=== PATIENT | male | born 1950 | race Caucasian/White ===

== ENCOUNTER 2016-05-09 10:50 | Day surgery (SDC) | payer MEDICARE, BC ==
--- NOTE | ~2016-05-09 | EGD ---
EGD REPORT [facility] [address] [phone] NAME: ALBARO HUYNH : [birth year] STATUS : REG [facility] PAT#: [id number] AGE: 66 ADM/REG DATE : 05/09/16 MR#: [id number] REPORT SERV DATE: 05/09/16 DICTATED BY: AMY LANCE DATE: 05/09/16 REPORT STATUS : Draft TRANSCRIBED BY: [facility] DATE: 05/09/16 Endoscopy Center Patient Name: Albaro Huynh Date of : 1950 Attending MD: AMY LANCE, Procedure Date No Time: 05/09/2016 Procedure: Upper EUS Indications: Staging of gastric adenocarcinoma Referring MD: BENITEZ Lan Medicines: Monitored Anesthesia Care Complications: No immediate complications. Estimated blood loss: None. Procedure: Pre-Anesthesia Assessment: - ASA Grade Assessment: II - A patient with mild systemic disease. After obtaining informed consent, the endoscope was passed under direct vision. Throughout the procedure, the patient's blood pressure, pulse, and oxygen saturations were monitored continuously. The GIF [id number] was introduced through the mouth, and advanced to the second part of duodenum. The Endoscope was introduced through the mouth, and advanced to the lower third of esophagus. Findings: Endoscopic Finding : A large, ulcerating mass with bleeding was found at the lower esophageal sphincter, at the gastroesophageal junction and in the cardia. The mass was partially obstructing and circumferential. The mass was involving the proximally 3-4 cm of the stomach and extending about 2 cm into the esophagus. The exam of the stomach was otherwise normal. The examined duodenum was endoscopically normal. Endosonographic Finding : A hypoechoic mass was found in the lower third of the esophagus. The lesion was circumferential. There was sonographic evidence suggesting invasion into the adventitia (Layer 5). The mass was not traversible with the EUS scope. No lymphadenopathy seen. Impression: - Partially obstructing, malignant esophageal tumor was found at the gastroesophageal junction and in the cardia. - Normal examined duodenum. - A mass was found in the lower third of the esophagus. T3NO by EUS. However lesion was not traversible with EUS scope and there is potential for understaging. EGD REPORT [address] [address] NAME: ALBARO HUYNH : [birth year] STATUS : REG [facility] PAT#: [id number] AGE: 66 ADM/REG DATE : 05/09/16 MR#: [id number] REPORT SERV DATE: 05/09/16 DICTATED BY: AMY LANCE DATE: 05/09/16 REPORT STATUS : Draft TRANSCRIBED BY: [email or web address] DATE: 05/09/16 Recommendation: - Return to previous diet. - Continue present medications. - Return to referring physician. Procedure Code(s): --- Professional --- 39172, Esophagogastroduodenoscopy, flexible, transoral; with endoscopic ultrasound examination limited to the esophagus, stomach or duodenum, and adjacent structures Diagnosis Code(s): --- Professional --- C16.0, Malignant neoplasm of cardia K22.8, Other specified diseases of esophagus CPT copyright 2013 [employer]. All rights reserved. The codes documented in this report are preliminary and upon desktop support technician review may be revised to meet current compliance requirements. AMY LANCE, 05/09/2016 12:59 PM Number of Addenda: 0 Note Initiated On: 05/09/2016 12:34 PM Scope Withdrawal Time 0 hours 0 minutes 0 seconds [address] [id number]
[~2016-05-09 10:50] MED LIST: ASAB PO; CALTRA600D PO; CO Q-10100 MG PO; LIPITOR40 PO; LOP50 PO; LOTENSIN HCT1 TA3 PO; MOBIC15 MG PO; NORV10 PO; Z100 PO
[2016-05-09 11:36] LABS: BUN (BLOOD UREA NITROGEN) 18 MG/DL (6-23); CALCIUM, SERUM 9.1 MG/DL (8.5-10.4); CHLORIDE, SERUM 108 MMOL/L (96-112); CO2 (CARBON DIOXIDE) 27 MMOL/L (24-34); GFR AFRICAN AMERICAN 106 ML/MIN (>=60); GFR NON AFRICAN AMERICAN 92 ML/MIN (>=60); GLUCOSE, SERUM 117 MG/DL (60-99); POTASSIUM, SERUM 3.8 MMOL/L (3.5-5.3); SODIUM, SERUM 143 MMOL/L (135-148)
[2016-08-23] MEDS ORDERED: COMP10B PO (18:28)
[2016-08-23] MEDS ORDERED: ZOFRANODT8 (18:29)
[2016-08-23] MEDS ORDERED: ULTRAM50 PO (18:30)
[2016-08-23] MEDS ORDERED: KLOR-CON M2020 MEQ PO (18:30)
[2016-08-23] MEDS ORDERED: FLUOROURACIL (18:33)
== END 2016-05-09 23:59 | disposition home or self-care (01) ==
LOC: DMU 10:50
PROVIDERS: Anesthesiology; Internal Medicine Gastroenterology
PROC: 0DJ08ZZ Inspection of Upper Intestinal Tract, Via Natural or Artificial Opening Endoscopic (ICD-10-PCS; principal; 2016-05-09 12:30)
DX: C16.0 Malignant neoplasm of cardia (principal); I10 Essential (primary) hypertension; I25.10 Atherosclerotic heart disease of native coronary artery without angina pectoris; M19.90 Unspecified osteoarthritis, unspecified site; M10.9 Gout, unspecified; E11.9 Type 2 diabetes mellitus without complications; E78.00 Pure hypercholesterolemia, unspecified; Z95.5 Presence of coronary angioplasty implant and graft; Z79.1 Long term (current) use of non-steroidal anti-inflammatories (NSAID); Z79.82 Long term (current) use of aspirin; Z79.899 Other long term (current) drug therapy; Z98.890 Other specified postprocedural states
CPT/HCPCS: 80048

== ENCOUNTER 2016-06-04 07:50 | Day surgery (SDC) | payer MEDICARE, BC ==
--- NOTE | ~2016-06-04 | CN ---
Consultation Report [facility] [address] [place]. [address] NAME: ALBARO HUYNH : [birth year] STATUS : REG [facility] PAT#: [id number] AGE: 66 ADM/REG DATE : 06/04/16 MR#: [id number] REPORT SERV DATE: 06/04/16 DICTATED BY: NGUYỄN AC DATE: 06/04/16 REPORT STATUS : Draft TRANSCRIBED BY: MODMalik DATE: 06/04/16 CONSULT DATE OF CONSULTATION: Dear Dr. Virgilio Silver: Thank you for requesting my opinion regarding evaluation and management of FDG-avid mediastinal lymphadenopathy. Mr. 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 The patient states that he has no significant shortness of breath with routine activity; however, he has typical exertional dyspnea well localized to the chest, nonradiating with no significant alleviating or exacerbating factors. He has a significant past medical history of diabetes, changed his diet, and has lost approximately 55 pounds due to dietary reasons. He denies any bowel changes or visible blood loss. He does have a history of cardiac stent and takes daily aspirin which has been held in anticipation of the procedure. ALLERGIES: NO KNOWN DRUG ALLERGIES. HOME MEDICATIONS: Reviewed and located in the paper chart. PAST MEDICAL HISTORY: 1. Arthritis. 2. Diabetes. 3. Hypertension. 4. Gastroesophageal carcinoma, colon, distal esophagus/gastric cardia tumor, UT3 N0 and PET FDG-avidity in the gastric fundus, lesser curvature, some small foci and increased FDG-avidity in the periportal lymph nodes anterior aspect of the caudate liver and recent scan that demonstrates mediastinal adenopathy as well. PAST SURGICAL HISTORY: Colonoscopy in 2009 and cardiac stent in 1994. SOCIAL HISTORY: The patient is . He is a lifelong nonsmoker. He does drink alcohol on a social basis. He lives with his spouse of 48 years. FAMILY HISTORY: Brain cancer. Hypertension. REVIEW OF SYSTEMS: A detailed 14-point review of systems was completed. Pertinent positives and negatives are listed above. Consultation Report [facility] [address] [facility]. [address] NAME: ALBARO HUYNH : [birth year] STATUS : REG [facility] PAT#: [id number] AGE: 66 ADM/REG DATE : 06/04/16 MR#: [id number] REPORT SERV DATE: 06/04/16 DICTATED BY: NGUYỄN AC DATE: 06/04/16 REPORT STATUS : Draft TRANSCRIBED BY: BLACK DATE: 06/04/16 PHYSICAL EXAMINATION: VITAL SIGNS: Height 5 foot 11. Blood pressure 144/72, pulse of 66, respiratory rate of 20, O2 saturation 94%, and afebrile 97.8. GENERAL: No acute distress. Able to communicate in full paragraphs at a time. HEENT: Normocephalic, atraumatic. Pupils are equal, round, and reactive to light and accommodation. Posterior oropharynx is clear. NECK: No JVD. No LAD. Trachea midline. CARDIOVASCULAR: Regular rate and rhythm. S1, S2 present. LUNGS: Clear to auscultation bilaterally. ABDOMEN: Nontender, nondistended. Soft. Positive bowel sounds. EXTREMITIES: No clubbing, cyanosis, or edema. SKIN: No new rashes, lesions, or ulcers. PSYCHIATRIC: Alert and oriented x3. Appropriate mood and affect. Appropriate insight and judgment. NEUROLOGIC: 5/5 strength in upper and lower extremities. IMAGING: PET-CT scan of the chest was performed on 05/20/2016, was personally reviewed by me. Multifocal increased FDG-avidity in the gastric fundus, lesser curvature of the stomach, consistent with a history of adenocarcinoma. Small foci of increased FDG-activity in the periportal lymph nodes as well in the anterior aspect of the caudate lobe of the liver concerning for metastatic disease and multiple FDG-avid mediastinal and bilateral hilar nodes, concerning for metastatic disease. Minimal right-sided pleural effusion as well as a moderate ascites. ASSESSMENT AND PLAN: Mr. Albaro Huynh is an extremely pleasant 66-year-old gentleman with a significant past medical history of gastric cardia adenocarcinoma, who presents with an abnormal PET-CT scan on 05/20/2016, that demonstrates multiple sites of FDG-avidity including the mediastinal lymph nodes. The patient is being assessed for possible metastatic disease and other potential etiologies of the mediastinal lymphadenopathy though unlikely, could also represent reactive or inflammatory nodes. At this point, Mr. Huynh qualifies for multiple routes of diagnosis including CT-guided needle biopsy of the other lesions and EBUS bronchoscopy. After careful discussion of the risks, benefits, and alternatives to each of these procedures, we agreed to proceed forward with EBUS bronchoscopy. The patient is aware that the procedure is associated with potential life-threatening risks, including lung collapse, respiratory failure, and even . RECOMMENDATIONS: A summary of my recommendations are as follows: 1. Proceed with EBUS bronchoscopy. 2. Follow up with Dr. Virgilio Silver. Thank you for allowing me to participate in Mr. Albaro Huynh's care. Consultation Report [address]. [address] NAME: ALBARO HUYNH : [birth year] STATUS : REG [facility] PAT#: [id number] AGE: 66 ADM/REG DATE : 06/04/16 MR#: [id number] REPORT SERV DATE: 06/04/16 DICTATED BY: NGUYỄN AC DATE: 06/04/16 REPORT STATUS : Draft TRANSCRIBED BY: BLACK DATE: 06/04/16 KB/BLACK Nguyễn Ac M.D. / [id number] CC: Katy Castillo
--- NOTE | ~2016-06-04 | EGD ---
EGD REPORT [facility] [address] [phone] NAME: ALBARO HUYNH : [birth year] STATUS : REG [facility] PAT#: [id number] AGE: 66 ADM/REG DATE : 06/04/16 MR#: [id number] REPORT SERV DATE: 06/04/16 DICTATED BY: TEDDY AC DATE: 06/04/16 REPORT STATUS : Draft [facility]ANSCRIBED BY: [facility] DATE: 06/04/16 Pulmonology Patient Name: Albaro Huynh Procedure Date: 06/04/2016 8:52 AM Date of : 1950 Attending MD: SOSA AC MD Procedure Date No Time: 06/04/2016 Procedure: EBUS Indications: Mediastinal adenopathy, history of gastric adenocarcinoma Providers: SOSA AC MD Referring MD: DONAVAN Lan Medicines: Lidocaine 2% 20 mL Complications: No immediate complications Procedure: Pre-Anesthesia Assessment: - A History and Physical has been performed. Patient meds and allergies have been reviewed. The risks and benefits of the procedure and the sedation options and risks were discussed with the patient. All questions were answered and informed consent was obtained. Patient identification and proposed procedure were verified prior to the procedure by the physician and the nurse in the pre-procedure area in the procedure room. Mental Status Examination: alert and oriented. Airway Examination: normal oropharyngeal airway. Respiratory Examination: clear to auscultation. CV Examination: normal and RRR, no murmurs, no S3 or S4. ASA Grade Assessment: III - A patient with severe systemic disease. After reviewing the risks and benefits, the patient was deemed in satisfactory condition to undergo the procedure. The anesthesia plan was to use general anesthesia. Immediately prior to administration of medications, the patient was re-assessed for adequacy to receive sedatives. The heart rate, respiratory rate, oxygen saturations, blood pressure, adequacy of pulmonary ventilation, and response to care were monitored throughout the procedure. The physical status of the patient was re-assessed after the procedure. Findings: The laryngeal mask airway is in normal position. The vocal cords move normally with breathing. The subglottic space is normal. The trachea is of normal caliber. The chalino is splayed. The tracheobronchial tree was examined to at least the first subsegmental level. Bronchial mucosa and anatomy are normal; there are no endobronchial lesions, and no secretions. EGD REPORT [facility] [address] [place], [place] [address]. [address] NAME: ALBARO HUYNH : [birth year] STATUS : REG [facility] PAT#: [id number] AGE: 66 ADM/REG DATE : 06/04/16 MR#: [id number] REPORT SERV DATE: 06/04/16 DICTATED BY: TEDDY AC DATE: 06/04/16 REPORT STATUS : Draft TRANSCRIBED BY: [employer] DATE: 06/04/16 EBUS TBNA of lymph node level 11L x 4 passes for cytology EBUS TBNA of lymph node level 7 x 4 passes for cytology EBUS TBNA of lymph node level 4R x 8 passes for cytology Impression: Rapid On-Site Evaluation (KANIKA): Preliminary cytology is POSTIVE for ADENOCARCINOMA(final results are pending). Recommendation: - Await test results. - Chest X-ray post-procedure. - Consultation with/referral to referring Dr. Nadeem VILLANUEVA Attending Participation: I personally performed the entire procedure. SOSA AC MD 06/04/2016 10:23 AM This report has been signed electronically. Number of Addenda: 0 Note Initiated On: 06/04/2016 8:52 AM [address] [place] [address]
[2016-06-04 08:29] LABS: BASOPHILS 0.5 %; BASOPHILS ABSOLUTE 0.05 10/3/uL (0.0-0.16); EOSINOPHILS 2.7 %; EOSINOPHILS ABSOLUTE 0.27 10/3/uL (0.0-0.53); HEMOGLOBIN 12.8 g/dL (13.6-17.8); IMMATURE GRANULOCYTES 0.2 %; IMMATURE GRANULOCYTES ABSOLUTE 0.02 10/3/uL (0.0-0.11); LYMPHOCYTES ABSOLUTE 1.79 10/3/uL (0.67-4.30); MEAN CORPUSCULAR HEMOGLOB 29.9 pg (26.0-34.0); MEAN CORPUSCULAR VOLUME 88.1 fL (80-100); MEAN PLATELET VOLUME 9.8 fL (9.2-13.0); MONOCYTES 8.8 %; MONOCYTES ABSOLUTE 0.87 10/3/uL (0.21-1.20); NEUTROPHILS 69.8 %; NEUTROPHILS ABSOLUTE 6.93 10/3/uL (2.02-8.40); PLATELET COUNT 331 10/3/uL (150-400); RBC DISTRIBUTION WIDTH 13.6 % (12.0-16.0); RED CELL COUNT 4.28 10/6/uL (4.7-6.1); WHITE BLOOD CELLS 9.9 10/3/uL (4.5-10.5)
[2016-06-04 08:31] LABS: HEMATOCRIT 37.7 % (40.0-51.0)
[2016-06-04 08:32] LABS: MANUAL DIFF NO %
[2016-06-04 08:39] LABS: PROTIME (NOT ORD) 13.2 SEC (12.0-14.5)
[2016-06-04 08:40] LABS: BUN (BLOOD UREA NITROGEN) 25 MG/DL (6-23); CHLORIDE, SERUM 102 MMOL/L (96-112); CO2 (CARBON DIOXIDE) 30 MMOL/L (24-34); CREATININE 1.14 MG/DL (0.70-1.30); GFR AFRICAN AMERICAN 76 ML/MIN (>=60); GFR NON AFRICAN AMERICAN 66 ML/MIN (>=60); GLUCOSE, SERUM 119 MG/DL (60-99); POTASSIUM, SERUM 3.4 MMOL/L (3.5-5.3); SODIUM, SERUM 140 MMOL/L (135-148)
[2016-08-23] MEDS ORDERED: COMP10B PO (18:28)
[2016-08-23] MEDS ORDERED: ZOFRANODT8 (18:29)
[2016-08-23] MEDS ORDERED: ULTRAM50 PO (18:30)
[2016-08-23] MEDS ORDERED: KLOR-CON M2020 MEQ PO (18:30)
[2016-08-23] MEDS ORDERED: FLUOROURACIL (18:33)
== END 2016-06-04 23:59 | disposition home health service (06) ==
LOC: DMU 07:50
PROVIDERS: Anesthesiology; Internal Medicine
PROC: 07B74ZX Excision of Thorax Lymphatic, Percutaneous Endoscopic Approach, Diagnostic (ICD-10-PCS; principal; 2016-06-04 09:30)
DX: C77.0 Secondary and unspecified malignant neoplasm of lymph nodes of head, face and neck (principal); C16.0 Malignant neoplasm of cardia; M19.90 Unspecified osteoarthritis, unspecified site; E11.9 Type 2 diabetes mellitus without complications; I10 Essential (primary) hypertension; I25.10 Atherosclerotic heart disease of native coronary artery without angina pectoris; Z98.890 Other specified postprocedural states
CPT/HCPCS: 71010; 80048; 85025; 85610; 85730; 88172; 88173; 88305; A9270-GY; C1725; J0330; J2250; J2370; J2405; J3010